=== PATIENT | male | born 1995 ===

== ENCOUNTER 2016-11-03 14:12 | Emergency (ER) | payer OTHER ==
--- NOTE | 2016-11-03 16:06 | UC ---
Cardiac HPI - HPI Summary HPI Summary: ONSET OF SHARP MID STERNAL CHEST PAIN LAST NIGHT 1AM. LASTED LESS THAN 30 MINUTES AND SPONTANEOUSLY RESOLVED. HAD ANOTHER EPISODE TODAY 1PM PRIOR TO EATING LUNCH. LASTED ABOUT 5 MINUTES. NO SOB, NAUSEA, SWEATS, DIZZINESS, VISUAL DISTURBANCES OR RADIATION OF THE PAIN. NO PAIN DURING ENCOUNTER. NO ASSOCIATION WITH FOOD. NOT PLEURITIC. NOT WORSE WITH EXERTION. NO RECENT ILLNESS OR URI SX. - History of Current Complaint Chief Complaint: UCChestPain Stated Complaint: CHEST PAIN Time Seen by Provider: 11/03/16 15:58 Hx Obtained From: Patient Onset/Duration: Sudden Onset, Lasting Minutes, Resolved Initial Severity: Moderate Current Severity: Moderate Pain Intensity: 5 Chest Pain Location: Mid Sternal Character: Sharp/Stabbing Aggravating: Nothing Alleviating: Spontaneous Resolution Associated Signs & Symptoms: Positive: Chest Pain. Negative: Vision Changes, Anxiety, Recent Stress, Headaches, Numbness, Tingling, Weakness, Dizziness, SOB , Syncope, Fever, Diaphoresis, Nausea/Vomiting, Palpitations, Cough, Hemoptysis , Back Pain, Abdominal Pain - Allergy/Home Medications Allergies/Adverse Reactions: Allergies Allergy/AdvReac Type Severity Reaction Status Date / Time Hydrocortisone Allergy Swelling Verified 11/03/16 14:24 Home Medications: Home Medications Cholecalciferol [Vitamin D] 1,000 unit PO 11/03/16 [History] PMH/Surg Hx/FS Hx/Imm Hx Previously Healthy: Yes Endocrine History Of: Denies: Diabetes, Thyroid Disease Cardiovascular History Of: Denies: Cardiac Disorders, Hypertension Respiratory History Of: Denies: COPD, Asthma GI/ History Of: Denies: Ulcer - Surgical History Surgical History: None - Family History Known Family History: Negative: Cardiac Disease, Hypertension, Diabetes - Social History Alcohol Use: Occasionally Substance Use Type: None Smoking Status (MU): Never Smoked Tobacco Review of Systems Constitutional: Negative Respiratory: Negative Cardiovascular: Chest Pain Gastrointestinal: Negative Genitourinary: Negative Neurological: Negative All Other Systems Reviewed And Are Negative: Yes Physical Exam Triage Information Reviewed: Yes Appearance: Well-Appearing, No Pain Distress, Well-Nourished Vital Signs: Initial Vital Signs Temp 98.5 F 11/03/16 14:17 Pulse 83 11/03/16 14:17 Resp 18 11/03/16 14:17 BP 130/73 11/03/16 14:17 Pulse Ox 99 11/03/16 14:17 Vital Signs Reviewed: Yes Eyes: Positive: Conjunctiva Clear ENT: Positive: Hearing grossly normal Neck: Positive: Supple, Nontender, No Lymphadenopathy Respiratory Exam: Normal Cardiovascular Exam: Normal Abdomen Description: Positive: Soft Musculoskeletal: Positive: No Edema Neurological: Positive: Alert Psychological: Positive: Age Appropriate Behavior Skin: Negative: rashes Diagnostics - EKG Cardiac Rate: NL - 80BPM Cardiac Rhythm: Sinus: Normal Ectopy: None ST Segment: Normal - Differential Diagnoses - Chest Pain Differential Diagnosis/HQI/PQRI: Chest Wall, GI Disease - Clinical Impression Provider Diagnoses: NON CARDIAC CHEST PAIN Discharge - Discharge Plan Condition: Stable Disposition: HOME Patient Education Materials: Chest Pain (ED), Noncardiac Chest Pain (ED) Referrals: [facility] @ [Outside] - If Needed Additional Instructions: LOW SUSPICION FOR CARDIAC CAUSE OF CHEST PAIN TODAY. RECOMMEND CAREFUL OBSERVATION AND FOLLOW-UP WITH [facility]UDENT [facility]. GO TO ER WITHOUT FAIL IF YOU DEVELOP WORSENING CHEST PAIN, SHORTNESS OF BREATH, NAUSEA, SWEATS OR ANY OTHER CONCERNING SYMPTOMS.
== END 2016-11-03 16:22 | disposition home or self-care (01) ==
LOC: UCEAST 14:12
DX: R07.89 Other chest pain (principal)
CPT/HCPCS: 93005; 99201; G0463

== ENCOUNTER 2019-04-19 18:29 | Emergency (ER) | payer OTHER ==
--- NOTE | 2019-04-19 19:15 | UC ---
Upper Extremity HPI - HPI Summary HPI Summary: 23-year-old male comes in with a chief complaint of left antecubital pain that started after donating blood 2 weeks ago. He reports that the head keep moving the needle around in his arm. He did have ecchymosis at the site which is now gone. Pain is intermittent. It's localized to the site where the IV was. He has normal strength in the fingers wrist elbows and shoulder. No numbness no weakness. His arm does not feel cold. - History of Current Complaint Chief Complaint: UCUpperExtremity Stated Complaint: ARM PAIN Time Seen by Provider: 04/19/19 19:07 Pain Intensity: 4 - Allergies/Home Medications Allergies/Adverse Reactions: Allergies Allergy/AdvReac Type Severity Reaction Status Date / Time hydrocortisone Allergy Swelling Verified 04/19/19 18:33 Home Medications: Home Medications NK [No Home Medications Reported] 04/19/19 [History Confirmed 04/19/19] PMH/Surg Hx/FS Hx/Imm Hx Previously Healthy: Yes - Surgical History Surgical History: None - Family History Known Family History: Negative: Cardiac Disease, Hypertension, Diabetes - Social History Alcohol Use: Occasionally Substance Use Type: None Smoking Status (MU): Never Smoked Tobacco Review of Systems All Other Systems Reviewed And Are Negative: Yes Constitutional: Positive: Negative Skin: Positive: Other - SEE HPI Eyes: Positive: Negative ENT: Positive: Negative Respiratory: Positive: Negative Cardiovascular: Positive: Negative Gastrointestinal: Positive: Negative Motor: Positive: Negative Neurovascular: Positive: Negative Musculoskeletal: Positive: Other: - SEE HPI Neurological: Positive: Negative Psychological: Positive: Negative Is Patient Immunocompromised?: No Physical Exam Triage Information Reviewed: Yes Appearance: Well-Appearing, No Pain Distress, Well-Nourished Vital Signs: Initial Vital Signs Temp 97.9 F 04/19/19 18:34 Pulse 93 04/19/19 18:34 Resp 20 04/19/19 18:34 BP 131/74 04/19/19 18:34 Pulse Ox 100 04/19/19 18:34 Vital Signs Reviewed: Yes Eye Exam: Normal Eyes: Positive: Conjunctiva Clear Neck: Positive: Supple Respiratory: Positive: No respiratory distress Musculoskeletal: Positive: Strength Intact, ROM Intact, Other: - On examination of the left antecubital there is no tenderness to palpation there is no swelling. This is the site where the pain comes intermittently. Left fingers wrist elbow have full range of motion full-strength normal sensation normal capillary refill normal radial pulses. Neurological: Positive: Alert, Muscle Tone Normal Psychological: Positive: Age Appropriate Behavior Skin Exam: Normal Upper Extremity Course/Dx - Differential Dx/Diagnosis Provider Diagnosis: Pain in anterior left upper extremity Discharge ED - Sign-Out/Discharge Documenting (check all that apply): Patient Departure All imaging exams completed and their final reports reviewed: No Studies - Discharge Plan Condition: Stable Disposition: HOME Patient Education Materials: Arm Pain (ED) Referrals: [facility] [Outside] Additional Instructions: FOLLOW UP WITH YOUR DOCTOR IF NOT COMPLETELY IMPROVED. GET RECHECKED SOONER IF YOUR CONDITION WORSENS; WEAKNESS, NUMBNESS, POOR CIRCULATION, PAIN OR ANY QUESTIONS OR CONCERNS. - Billing Disposition and Condition Condition: STABLE Disposition: Home
== END 2019-04-19 19:20 | disposition home or self-care (01) ==
LOC: UCEAST 18:29
DX: M79.602 Pain in left arm (principal)
CPT/HCPCS: 99211; G0463